=== PATIENT | male | born 1980 | race Caucasian/White ===

== ENCOUNTER 2018-09-06 13:36 | Emergency (ER) | payer BC, SELFPAY ==
[2018-09-06 13:36] VITALS: BP 162/101; PULSE 86; RESP 16; TEMP 36.8; O2SAT 97; BMI 44.7
[2018-09-06] MEDS: HYDROcodone Bitartrate/Apap 5/325 Tablet PO (13:48)
--- NOTE | 2018-09-06 13:52 | RAD_ITS ---
STUDY: X-RAY - LUMBAR SPINE REASON FOR EXAM: Male, 38 years old. Lower back pain. TECHNIQUE: 3 view(s) of the lumbar spine were obtained. COMPARISON: None FINDINGS: There is straightening of the normal lumbar lordosis. There is no substantial scoliosis. There is a normal alignment of the vertebrae. Mild degree of disc space narrowing and spondylosis at the L5-S1 level. The soft tissue structures are unremarkable. RAD/Lumbar Spine 2 or 3 Views IMPRESSION: Degenerative changes of the spine, as detailed above. Electronically Signed: Marcelino Victoria, at 14:35 EDT , Service support ,
--- NOTE | 2018-09-06 14:03 | ED.DCSUM_ITS ---
- ER Visit Summary Date of Service: 09/06/18 Chief Complaint: Left buttock pain and thigh pain History of Present Illness: The patient is a 38 M presents to the emergency department with left buttock pain and 5 pain. The patient states that he started a new job. 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 He states now, he is been moving a lot more boxes. He states that he began to have some sharp pain in his left buttock. He also describes a burning in his posterior thigh. He had no problems with bowel or bladder. He denies any fevers or chills. He denies any trauma. He denies any weakness. He states that he he stretches, and seems to feel better, but it has gotten worse over the past 2 days. Physical Examination: Afebrile, vitals unremarkable. Well-appearing male no acute distress. Head is normocephalic, atraumatic. Pupil's equal round reactive, extraocular muscles intact. Neck supple. Heart regular rate and rhythm. Lungs clear, chest nontender. Abdomen soft, nontender, nondistended. No pulsatile mass. Patient has paraspinal tenderness in the lumbar area, but no bony tenderness. There is also tenderness in the left piriformis area which does re-create some of the symptoms. Straight leg raise is negative salvatore aterally. 2+ symmetric lower extremity pulses. 2+ reflexes. No clonus. No weakness of dorsiflexion, plantar flexion, or extensor hallucis longus bilaterally. Test Results: [] Emergency Department Course and Treatment: The patient symptoms do seem consistent with a peripheral radiculopathy. He has tenderness over his piriformis muscle. I did obtain plain films of his lumbar spine. These are unremarkable for fracture. Patient did have pain control with [facility]. I am to place him a short burst of prednisone and analgesics. He will also continue stretching exercises. If the patient is safe for outpatient therapy. He is comfortable with this plan of care. Treatment Plan: [] Disposition: Discharge Impression: 1. Left lumbar radiculopathy This note was generated with Ninja Bl[employer] software. It may contain incorrect words, spelling, and punctuation that were not noted in review of the chart prior to signing ED Disposition - Plan for ED Patient: Instructions: ED Sciatica Prescriptions: Hydrocodone Bitart/Apap 5-325 [[place] 5MG-325MG] 1 tab PO Q6H PRN PRN 3 Days #10 tab PRN Reason: Pain Prednisone 10 mg PO UD #33 tab Referrals: NOT,DEFINED [NON-STAFF] -
[2018-09-06 15:18] VITALS: BP 194/119; PULSE 79; RESP 16; O2SAT 98
== END 2018-09-06 15:27 | disposition home or self-care (01) ==
PROVIDERS: Emergency Provider Emergency Medicine
DX: M54.16 Radiculopathy, lumbar region (principal); Z87.891 Personal history of nicotine dependence
CPT/HCPCS: 72100; 99283

== ENCOUNTER 2019-12-30 11:01 | Emergency (ER) | payer BC, SELFPAY ==
[2019-12-30 11:02] VITALS: BP 159/122; PULSE 95; RESP 18; TEMP 36.2; O2SAT 94; BMI 44.1
--- NOTE | 2019-12-30 11:42 | CT_ITS ---
STUDY: CT ABDOMEN AND PELVIS WITHOUT CONTRAST REASON FOR EXAM: Male, 39 years old. RT FLANK PAIN/URINARY URGENCY RADIATION DOSAGE (If Supplied By Facility): CTDIvol = ( 30.92 ) mGy, DLP = ( 1537.01 ) mGycm TECHNIQUE: Transaxial images were obtained from the dome of the diaphragm to the symphysis pubis without oral contrast, and without intravenous contrast. Sagittal and coronal images were reconstructed. Individualized dose optimization techniques were used for this CT. COMPARISON: None. FINDINGS: The visualized lung bases are unremarkable. The visualized portions of the heart are within normal limits. Pronounced diffuse fatty infiltration of the liver with minimal areas of fatty sparing in the right hepatic lobe. Normal gallbladder and extrahepatic biliary system. Normal spleen. Normal pancreas. Normal bilateral adrenal glands. Normal right kidney. Normal left kidney. Normal visualized stomach. Normal small intestine. Normal colon. The appendix is visualized and appears normal. Normal abdominal aorta. Normal inferior vena cava. Normal retroperitoneum. Normal urinary bladder. Normal size of prostate gland. Normal abdominal wall. L5-S1 disc space height narrowing with degenerative vacuum phenomenon. No acute osseous abnormality. CT/Abdomen/Pelvis without Cont IMPRESSION: 1. Pronounced hepatic steatosis with minimal areas of focal fatty sparing in the right hepatic lobe. 2. No CT evidence of mass or acute abnormality in the abdomen and pelvis. 3. No CT evidence of stones in the kidneys, ureters and urinary bladder. 4. Normal CT of the appendix. 5. L5-S1 degenerative disc space height narrowing with degenerative vacuum phenomenon. Electronically Signed: Ishan Crane MD at 13:07 EDT , Service support ,
[2019-12-30] MEDS: Ondansetron 4 MG/2 ML Vial IV (12:02)
[2019-12-30] MEDS: 0.9% Normal Saline 1,000 ML 250 ML IV (12:02)
[2019-12-30] MEDS: Morphine 4 MG/ML Syringe IV (12:02)
[2019-12-30] MEDS: Ketorolac 15 MG/ML Vial IV (12:08)
[2019-12-30 12:25] LABS: Bacteria 0 SEEN /hpf (None Seen); Mucous, Urine 0 SEEN /hpf (<or=2+); Red Blood Cells-Urine 0 SEEN /hpf (0-5); Squamous Epithelial Cells - UA 0 SEEN /hpf (0-5); White Blood Cells 0 SEEN /hpf (0-5)
[2019-12-30 12:27] LABS: Color, Urine Yellow (Yellow); Glucose, Dipstick Normal (Normal); Ketone-Dipstick Negative (Negative); Leukocyte Esterase-Dipstick Negative /ul (Negative); Nitrite-Dipstick Negative (Negative); Occult Blood-Urine Negative /ul (Negative); Protein-Dipstick Negative (Negative); Urine Bilirubin Dipstick Negative (Negative); Urine Clarity Clear (Clear); Urine Urobilinogen Normal (Normal)
--- NOTE | 2019-12-30 13:18 | ED.DCSUM_ITS ---
- ER Visit Summary Date of Service: 12/30/19 Chief Complaint: Right flank pain History of Present Illness: The patient is a 39 M with no primary care physician. He reports he has right flank pain that began today abruptly. It is a sharp pain is 10 of 10 at worst 9 out of 10 currently. Is worsened by walking or movement. Is not taken anything for pain. Denies any associated nausea, vomiting, or diarrhea. His last bowel was today. Normal hematochezia. No dysuria or frequency. States is similar to when he had kidney stones in the past. Physical Examination: Vitals: Stable. Afebrile. General: Well-nourished and well-developed. Head: Normocephalic atraumatic. Neck: Supple, no lymphadenopathy. No JVD. Nontender. Cardiovascular: Regular rate and rhythm. No murmurs. Respiratory: No respiratory distress. Clear to auscultation bilaterally. Abdominal: Soft, nontender, nondistended, normal bowel sounds. No guarding, rebound, or peritoneal signs. Back: Mild right CVA tenderness. Extremities: Nontender, no edema. Skin: Normal color, no rash. Neurologic: Alert and oriented ?3. Cranial nerves II through XII are intact. Normal strength and sensation. Psych: Normal affect. Test Results: Urinalysis is negative. CT shows no stone. Does show chronic changes. Please see the report. Emergency Department Course and Treatment: An OARRS report was obtained which was negative. The patient is given morphine, Toradol, and Zofran IV. He is resting more comfortably. Treatment Plan: Patient will be discharged with naproxen and 10 [place]. [facility] if not improving. Return to the emergency department for any worsening symptoms. Disposition: To home in improved and stable condition. Impression: 1. Right flank pain, acute. This note was generated with [employer] dictation software. It may contain incorrect words, spelling, and punctuation that were not noted in review of the chart prior to signing ED Disposition - Plan for ED Patient: Instructions: ED Flank Pain Uncertain Cause Prescriptions: Naproxen [Naprosyn] 500 mg PO BID #14 tablet Hydrocodone Bitart/Apap 5-325 [[place] 5MG-325MG] 1 tablet PO Q4H PRN PRN 2 Days #10 tablet PRN Reason: Pain Referrals: [facility] Blandon [NON-STAFF] - 1 Week if not improving
[2019-12-30 13:21] VITALS: BP 153/71; PULSE 79; RESP 16
== END 2019-12-30 13:35 | disposition home or self-care (01) ==
LOC: ED 12:43
PROVIDERS: Emergency Provider Emergency Medicine
DX: R10.9 Unspecified abdominal pain (principal); F17.290 Nicotine dependence, other tobacco product, uncomplicated; Z87.442 Personal history of urinary calculi
CPT/HCPCS: 74176; 81001; 96361; 96374; 96375; 99283; J7030; A4216; J2405

== ENCOUNTER 2021-08-10 12:10 | Emergency (ER) | payer BC, SELFPAY ==
[2021-08-10 12:11] VITALS: BP 168/118; PULSE 87; RESP 17; TEMP 36.5; O2SAT 94; BMI 42.3
--- NOTE | 2021-08-10 12:27 | EDS_ITS ---
HPI History of Present Illness Chief Complaint: Edema Informant: patient Onset/Context/Timing Onset: Days Context: Gradual Onset Location: L occipital Worsened by: nothing, maybe after shaving head Relieved by: nothing Associated Symptoms Associated Symptoms: swelling behind L ear, sinus congestion Narrative Narrative: L occipital swelling, now improved. With a small infected hair to the area after shaving head. Had some pain and swelling behind the left ear too. Oc casional sinus symptoms with decreased hearing in the R ear. PFSH PFSH Home Medications naproxen 500 mg PO BID #14 tab 12/30/19 [Rx Last Taken Unknown] cephalexin 500 mg PO Q6 #40 capsule 08/10/21 [Rx Last Taken Unknown] sulfamethoxazole-trimethoprim [Bactrim DS] 1 tab PO Q12H #20 tab 08/10/21 [Rx Last Taken Unknown] Allergy/AdvReac Type Severity Reaction Status Date / Time No Known Allergies Allergy Verified 08/10/21 12:11 Social History Smoking Status: Current some day smoker ROS ROS ED Constitutional Constitutional ED: Reports systems reviewed and no addt'l complaints, except as documented Eyes Eyes: Reports systems reviewed and no addt'l complaints, except as documented ENT ENT ED: Reports systems reviewed and no addt'l complaints, except as documented Musculoskeletal Musculoskeletal: Reports systems reviewed and no addt'l complaints, except as documented Integumentary Reports as per HPI Neurologic Neurologic: Reports systems reviewed and no addt'l complaints, except as documented Psychiatric Psychiatric: Reports systems reviewed and no addt'l complaints, except as documented Endocrine Endocrinology: Reports systems reviewed and no addt'l complaints, except as documented Hematologic/Lymphatic Hematologic/Lymphatic: Reports systems reviewed and no addt'l complaints, except as documented Allergic/Immunologic Allergic/Immunologic ED: Reports systems reviewed and no addt'l complaints, except as documented EXAM Physical Exam Const Vital Signs: 08/10/21 12:11 Temperature 97.7 F L Temperature Source Temporal Pulse Rate 87 Respiratory Rate 17 Blood Pressure 168/118 H Blood Pressure Mean 134 Pulse Ox 94 Oxygen Delivery Method Room Air Positive well nourished and well developed General Appearance ED: active and well developed HEENT Reports normocephalic HEENT Narrative: Left occipital folliculitis noted with surrounding erythema about the size of a quarter. No other erythema. No fluctuance. No pus or bleeding. Eyes PERRL and EOMs intact bilaterally Neck full ROM Neck Narrative: Tender to palpation over the left posterior auricular region. No skin changes there. No masses. Lymph Lymphatic: no lymphadenopathy noted Resp normal respiratory effort Effort and Inspection: Negative for abnormal respiratory pattern Cardio regular rate Back/Spine normal to inspection Extremity normal to inspection Neuro Sensorium / Orientation: awake and alert Meningeal Signs: no meningeal signs Cranial Nerves: CN normal except as noted Psych mental status grossly normal MDM MDM MDM Narrative Medical decision making narrative: Patient has a folliculitis and will be treated with oral antibiotics. I suspect the tenderness behind his ear was a reactive lymphadenopathy. Otherwise his HEENT exam is unremarkable. Normal cranial nerves. No fever or systemic symptoms. Patient will be discharged home with symptomatic care. Warm compresses. Return for any new or worsening issues. Impression #1 scalp folliculitis Disposition discharged home in stable condition Discharge Plan Triage Chief Complaint: Edema ED Provider: Antonio Stanley Dx/Rx/DC Orders Instructions: Cellulitis Prescriptions: New sulfamethoxazole-trimethoprim [Bactrim DS] 800-160 mg tablet 1 tab PO Q12H Qty: 20 RF: 0 cephalexin 500 mg capsule 500 mg PO Q6 Qty: 40 RF: 0 No Action naproxen 500 MG tablet 500 mg PO BID Qty: 14 RF: 0 Primary Care Provider: Care Physician,No Primary Referrals: Randee Pineda MD [STAFF PHYSICIAN] - Disposition Disposition: Home, Self Care
[2021-08-10] MEDS: Cephalexin 250 MG Capsule 500 MG PO (12:45)
[2021-08-10] MEDS: Smz/Tmp Ds Tablet 1 TABLET PO (12:45)
[2021-08-10 12:46] VITALS: BP 169/107; PULSE 84; RESP 17; O2SAT 95
== END 2021-08-10 12:51 | disposition home or self-care (01) ==
LOC: ED 12:33
PROVIDERS: Emergency Provider Emergency Medicine; Visit Provider Emergency Medicine
DX: L66.2 Folliculitis decalvans (principal); F17.200 Nicotine dependence, unspecified, uncomplicated
CPT/HCPCS: 99283

== ENCOUNTER → 2021-11-12 | Outpatient (CLI) | payer BC, SELFPAY ==
[2021-11-12 21:22] LABS: Absolute Lymphocyte Count 3.09 X10^3/uL (0.83-4.51); Absolute Neutrophil Count 5.8 X10^3/uL (2.0-7.7); Basophil# 0.07 X10^3/uL; Basophil% 0.7 % (0-1); Eosinophil# 0.26 X10^3/uL; Eosinophils% 2.5 % (0-5); Hematocrit 49.3 % (40-54); Hemoglobin 16.3 g/dL (13.0-16.5); Lymphocyte # 3.09 X10^3/ul (0.83-4.51); Lymphocyte % 30.3 % (19-41); Mean Corp Hgb Conc 33.1 g/dL (32-36); Mean Corpuscular Hgb 31.3 pg (27.0-32.0); Mean Corpuscular Volume 94.6 fL (80-94); Mean Platelet Vol. 9.8 fl (6.2-12.0); Monocyte# 0.99 X10^3/uL; Monocyte% 9.7 % (0-10); NRBC Flagged by Analyzer 0 % (0-5); Neutrophil # 5.76 X10^3/uL (2.7-7.7); Neutrophil % 56.4 % (47-70); Platelet Count 270 K/mm3 (150-450); RBC Distribution Width CV 12.4 % (11.6-14.6); Red Blood Count 5.21 M/mm3 (4.6-6.2); White Blood Count 10.2 K/mm3 (4.4-11.0)
[2021-11-12 21:46] LABS: AST(SGOT) 20 U/L (15-37); Alanine Aminotransfer ALT/SGPT 44 U/L (16-61); Albumin, Serum 3.9 g/dL (3.2-5.0); Alkaline Phosphatase 79 U/L (45-117); Anion Gap 4 (5-15); BUN 18 mg/dL (7-18); BUN/Creat Ratio 14.5 RATIO (10-20); Chloride 104 mmol/L (98-107); Cholesterol 161 mg/dL (200); Creatinine, Serum 1.24 mg/dL (0.70-1.30); EST Glomerular Filtration Rate 68 mL/min (>60); Est Glom Filt Rate - Afr Amer 83 mL/min (>60); Globulin 3.9 g/dL (2.2-4.2); Glucose 113 mg/dL (74-106); High Density Lipoprotein 32 mg/dL; PSA,Total - Annual Screen 0.52 ng/mL (0.00-4.00); Potassium 4.2 mmol/L (3.5-5.1); Protein, Total 7.8 g/dL (6.4-8.2); Sodium Level 140 mmol/L (136-145); Thyroid Stim Hormone (TSH) 1.64 uIU/mL (0.358-3.74); Triglycerides 170 mg/dL; Very Low Density Lipoprotein 34 mg/dL (5-40)
== END | disposition home or self-care (01) ==
PROVIDERS: Visit Provider Nurse Practitioner
DX: I10 Essential (primary) hypertension (principal); R35.0 Frequency of micturition
CPT/HCPCS: 80053; 80061; 84153; 84443; 85025; 86141; G0103

== ENCOUNTER → 2022-01-24 | Outpatient (CLI) | payer BC, SELFPAY ==
--- NOTE | 2022-01-24 14:42 | ECHOCS_ITS ---
Reason For Study: HYPERTENSION Procedure This was a 2D Doppler, Color Flow transthoracic echocardiogram. The study was technically difficult. Exam performed in department. Left Ventricle Normal size and thickness. The left ventricular ejection fraction is 55 %. Normal diastololic function. Right Ventricle Normal right ventricle. Atria The left and right atria are normal. Mitral Valve The mitral valve is structurally normal. No prolapse or stenosis seen. Tricuspid Valve Normal tricuspid valve. Aortic Valve Normal aortic valve. Pulmonic Valve Trivial eccentric pulmonic valve insufficiency. Great Vessels Normal sized aortic root. Pericardium/Pleural No pericardial effusion. Medication 22 gauge I.V. with prn adaptor inserted into right arm. Diluted definity 2ml given slow IV push to enhance endocardial definition. MMode/2D Measurements & Calculations LVIDd: 5.6 cm IVSd: 0.94 cm Ao root diam: 3.5 cm LVIDs: 3.9 cm LVPWd: 0.93 cm RVDd: 4.0 cm FS: 29.6 % LAV(MOD-bp): 56.5 ml LVAd ap4: 47.1 cm2 SV(MOD-sp4): 96.7 ml LAV(MOD-bp) Indexed: 23.2 ml/m2 LVLd ap4: 10.5 cm LAV(MOD-sp2): 51.9 ml EDV(MOD-sp4): 175.5 ml LAV(MOD-sp4): 57.0 ml EDV(sp4-el): 179.7 ml LVAs ap4: 27.6 cm2 LVLs ap4: 8.0 cm ESV(MOD-sp4): 78.8 ml ESV(sp4-el): 80.5 ml EF(MOD-sp4): 55.1 % EF(sp4-el): 55.2 % SV(sp4-el): 99.2 ml LA A4 area: 19.8 cm2 LA dimension(2D): 3.8 cm RA A4 area: 19.0 cm2 Time Measurements MV dec time: 0.20 sec Doppler Measurements & Calculations MV E max jason: 82.7 cm/sec Lat Peak E' Jason: 14.8 cm/sec Med Peak E' Jason: 12.6 cm/sec MV A max jason: 51.2 cm/sec E/E' lat: 5.6 E/E' med: 6.6 MV E/A: 1.6 Ao V2 max: 134.1 cm/sec LV V1 max: 125.0 cm/sec PA V2 max: 106.7 cm/sec Ao max P.2 mmHg LV V1 max P.2 mmHg TR max jason: 235.8 cm/sec TR max P.2 mmHg ECHO/Echo Complete W/ Contrast Interpretation Summary The left ventricular ejection fraction is 55 %. Ordering Physician: Kimberly Morales Referring Physician: Kimberly Morales Performed By: Sherly Roberts RDCS
[2022-01-24 16:13] LABS: Anion Gap 3 (5-15); BUN 23 mg/dL (7-18); BUN/Creat Ratio 25.7 RATIO (10-20); Calcium,Total 9.5 mg/dL (8.5-10.1); Chloride 101 mmol/L (98-107); Creatinine, Serum 0.89 mg/dL (0.70-1.30); EST Glomerular Filtration Rate 99 mL/min (>60); Est Glom Filt Rate - Afr Amer 120 mL/min (>60); Glucose 89 mg/dL (74-106); Potassium 4.4 mmol/L (3.5-5.1); Sodium Level 138 mmol/L (136-145)
== END | disposition home or self-care (01) ==
PROVIDERS: Referring Provider Internal Medicine Cardiovascular Disease; Visit Provider Internal Medicine Cardiovascular Disease
DX: I10 Essential (primary) hypertension (principal)
CPT/HCPCS: 36415; 80048; 93306; Q9957; A4216; C8929

== ENCOUNTER → 2022-02-03 | Outpatient (CLI) | payer BC, SELFPAY ==
[2022-02-03 15:43] LABS: Anion Gap 6 (5-15); BUN 21 mg/dL (7-18); BUN/Creat Ratio 22.2 RATIO (10-20); Calcium,Total 9.6 mg/dL (8.5-10.1); Chloride 105 mmol/L (98-107); Creatinine, Serum 0.95 mg/dL (0.70-1.30); EST Glomerular Filtration Rate 93 mL/min (>60); Est Glom Filt Rate - Afr Amer 113 mL/min (>60); Glucose 116 mg/dL (74-106); Potassium 3.7 mmol/L (3.5-5.1); Sodium Level 141 mmol/L (136-145)
== END | disposition home or self-care (01) ==
LOC: LAB 14:57
PROVIDERS: Visit Provider Internal Medicine Cardiovascular Disease
DX: R79.9 Abnormal finding of blood chemistry, unspecified (principal)
CPT/HCPCS: 36415; 80048

== ENCOUNTER 2023-04-14 20:48 | Emergency (ER) | payer BC, SELFPAY ==
[2023-04-14 20:49] VITALS: BP 159/112; PULSE 78; RESP 16; TEMP 35.9; O2SAT 99; BMI 39.0
[2023-04-14 21:18] LABS: Absolute Lymphocyte Count 3.05 X10^3/uL (0.83-4.51); Absolute Neutrophil Count 6.4 X10^3/uL (2.0-7.7); Basophil# 0.06 X10^3/uL; Basophil% 0.6 % (0-1); Eosinophil# 0.23 X10^3/uL; Eosinophils% 2.2 % (0-5); Hematocrit 45.7 % (40-54); Hemoglobin 15.2 g/dL (13.0-16.5); Lymphocyte # 3.05 X10^3/ul (0.83-4.51); Lymphocyte % 28.8 % (19-41); Mean Corp Hgb Conc 33.3 g/dL (32-36); Mean Corpuscular Hgb 30.8 pg (27.0-32.0); Mean Corpuscular Volume 92.5 fL (80-94); Mean Platelet Vol. 9.2 fl (6.2-12.0); Monocyte# 0.85 X10^3/uL; NRBC Flagged by Analyzer 0 % (0-5); Neutrophil # 6.36 X10^3/uL (2.7-7.7); Neutrophil % 59.9 % (47-70); Platelet Count 243 K/mm3 (150-450); Red Blood Count 4.94 M/mm3 (4.6-6.2); White Blood Count 10.6 K/mm3 (4.4-11.0)
--- NOTE | 2023-04-14 21:20 | RAD_ITS ---
STUDY: X-RAY CHEST REASON FOR EXAM: Male, 42 years old. chest pain TECHNIQUE: Single AP portable view of the chest. COMPARISON: None. FINDINGS: The lungs are clear and expanded. There is no demonstrated pleural abnormality. Normal size heart. Normal mediastinum and chavo. Normal visualized pulmonary arteries. Normal visualized aortic arch and descending thoracic aorta. Normal visualized thoracic spine. Normal visualized ribs, clavicles, and shoulders. There is no demonstrated abnormality of the visualized soft tissue structures of the upper abdomen. RAD/Chest 1 View (Portable) IMPRESSION: Normal x-ray examination of the chest. Electronically Signed: Andres Sawant MD at 21:47 EST ,
--- OUTSIDE RECORDS SUMMARY | 2023-04-14 21:21 | XMS RPT_ITS | CCD ---
Author Name Unknown Address [address] [place] [address] Organization [facility] Results Test Name Value Interpretation Reference Range Facil ity Encounters Encounter Date Encounter Type Care Provider Facility Start: 10-08-2016 End: 10-09-2016 Ambulatory [facility] Summary Purpose Family History No Family History Records Found Advance Directives No Advanced Directives Records Found Additional Source Comments (unrecognized sect ion and content) No Status Records Found INFORMATION SOURCE (unrecogn ized section and content) FOR RECORDS PERTAINING TO PATIENTS WHO ARE OR HAVE BEEN ENROLLED IN A CHEMICAL DEPENDENCY/SUBSTANCEABUSE PROGRAM, SOME INFORMATION MAY BE OMITTED. This clinical summary was aggregated from multiple sources. Caution should be exercised in using it in the provision of clinical care. This summary normalizes information from multiple sources, and as a consequence, information in this document may materially change the coding, format and clinical context of patient data. In addition, data may be omitted in some cases. CLINICAL DECISIONS SHOULD BE BASED ON THE PRIMARY CLINICAL RECORDS. [employer] provides no warranty or guarantee of the accuracy or completeness of information in this document.
[2023-04-14] MEDS: Aspirin 81 MG TAB.CHEW 324 MG PO (21:31)
[2023-04-14] MEDS: 0.9% Normal Saline (1000mL) 1,000 ML 150 ML IV (21:34)
--- NOTE | 2023-04-14 21:34 | EDS_ITS ---
HPI History of Present Illness Chief Complaint: Chest Pain Narrative Narrative: 42-year-old male past medical history of hypertension, smoker, presents with chest pain and left arm pain that has had. He states this morning at around 7:00 he did not feel well. He felt shaky. He went to the nurse who noticed that his blood pressure was elevated. They also state that his heart rate was high, above 100. He sat down and started to feel improved. He went about his day and went home. While he was at home tonight, he started feeling chest pain again. He asked his mother who had a maker what her chest pain felt like, and she told him that it felt more like indigestion and left arm pain. He became more concerned, stating that at around 7:00 he started feeling pain and shakiness again and is concerned about coronary artery disease. [facility] Medical History Essential (primary) hypertension Smoking addiction Thoracic myofascial strain Home Medications hydrochlorothiazide 25 mg tablet 25 mg PO DAILY #90 tabs 09/29/22 [Rx Last Taken Unknown] losartan 100 mg tablet 100 mg PO QDAY #90 tabs 01/02/23 [Rx Last Taken Unknown] metoprolol succinate 50 mg tablet,extended release 24 hr 50 mg PO QDAY #90 tabs 01/02/23 [Rx Last Taken Unknown] Allergy/AdvReac Type Severity Reaction Status Date / Time No Known Allergies Allergy Verified 04/14/23 20:49 Family History Father , age 49 METS TO BONE THEN BRAIN Prostate cancer Mother Myocardial infarction Had her maker 100% blockage open heart surgery Hypertension Diabetes Heart disease Grandmother Heart disease Grandfather Colon cancer Surgical History H/O adenoidectomy Hx of tonsillectomy Social History Smoking Status: Current some day smoker tobacco type: cigarettes Tobacco: How many years used: 23 quit status: considering quitting alcohol intake: current alcohol intake frequency: holidays/special occasions only substance use type: marijuana caffeine: Yes Type: coffee Number of servings: 1 ROS ROS ED ROS Narrative Constitutional: No fever, no chills. [place] sweaty at home. HEENT: No sore throat. No neck pain. No loss of vision. No rhinorrhea. Cardiovascular: Positive chest pain. No palpitations. No pedal edema. Respiratory: No cough, positive shortness of breath. Abdominal: No abdominal pain. No nausea. No vomiting. Genitourinary: No dysuria. No hematuria. Musculoskeletal: No myalgias. Left shoulder pain. Neurologic: No headaches. No dizziness. No lightheadedness. Skin: No rash. No change in color. Psychiatric: No depression. No anxiety. EXAM Physical Exam Narrative Exam Narrative: Afebrile. Vital signs noted. HEENT: Normocephalic. Atraumatic. PERRL, EOMI. Neck soft and supple. No point tenderness or step off. Cardiovascular: Regular rate and rhythm. No murmurs, rubs, or gallops appreciated. Respiratory: No tachypnea. Lungs clear to auscultation bilaterally. Gastrointestinal: Abdomen soft, nontender, with normoactive bowel sounds. No rebound or guarding. Neurological: Awake. Alert. Nonfocal, nonlateralizing. Skin: No rash. Normal color. No pallor. Musculoskeletal: No pedal edema. Full range of motion extremities. Const Vital Signs: 04/14/23 20:49 04/14/23 21:01 04/14/23 22:00 Temperature 96.7 F L Temperature Source Temporal Pulse Rate 78 Respiratory Rate 16 Respiratory Effort Normal Blood Pressure 159/112 H Blood Pressure Mean 127 Pulse Ox 99 98 Oxygen Delivery Method Room Air Room Air 04/14/23 22:25 04/14/23 23:51 Temperature Temperature Source Pulse Rate 72 74 Respiratory Rate 23 H 22 H Respiratory Effort Blood Pressure 133/77 H Blood Pressure Mean 95 Pulse Ox 97 97 Oxygen Delivery Method Room Air Heart Score History: Slightly/Non-Suspicious ECG: Normal Age: </= 45 years Risk Factors: >/= 3 Risk Factors or History of CAD Troponin: </= Normal Limit Score: 2 MDM MDM MDM Narrative Medical decision making narrative: In the differential diagnosis is ACS versus pulmonary embolism versus aortic dissection versus pneumothorax. I have low suspicion for pulmonary embolism because he is not tachycardic and his pulse ox is 99% on room air and the history and physical is not suggestive of that. Additionally, I have low suspicion for aortic dissection because he has equal pulses, he does not have tearing back pain. EKG was obtained and interpreted by myself independently as normal sinus rhythm at 77 bpm without ectopy or acute ST changes, no STEMI or no cardiac ischemia. Chest pain workup was pursued. I will also add a D-dimer to screen him for pulmonary embolism. Chest x-ray in 1 view was obtained and interpreted by myself as no evidence of pneumothorax or pneumonia. No widened mediastinum. I reviewed the radiology report which confirms my independent interpretation. I reviewed his laboratory work and he has normal white count of 10.6, hemoglobin normal at 15.2, hematocrit 45.7, platelet count normal at 243. Review available electrolyte panel shows potassium slightly low at 3.4 which was replaced orally with 40 mill equivalents, BUN slightly elevated 28 with creatinine normal at 1.01, glucose appropriately elevated at 111 with anion gap low at 4. Calcium is normal at 9.7, initial high-sensitivity troponin is 5. D-dimer is negative at less than 0.27. I have low suspicion for pulmonary embolism or aortic dissection. His blood pressure is now appropriate at 133/77. He is not tachycardic. I reviewed his prior outpatient record and he has been seen by cardiology who is managing his blood pressure. As well as a second troponin is negative, I feel he would be able to be discharged safely home. He was told he may require an outpatient stress test. He is to return with increasing chest pain, continued labile blood pressure, new or worsening symptoms. He will follow-up with his soil fertility extension specialist regarding his elevated blood pressure readings from today. He will continue his current medications. His second troponin is normal at 4. At this point in time, I feel he can be discharged safely home with follow-up. Smoking cessation was discussed. Return instructions to the emergency department were reviewed. Disposition is discharged home in stable condition. History & Record Review Discussion w/independent historian: Patient Additional record(s) reviewed:: Prior outpatient record and Prior ED visit Lab Data Attestation: I reviewed the patient's lab results. Labs: Laboratory Results - last 24 hr 04/14/23 04/14/23 04/14/23 20:58 21:15 23:26 WBC 10.6 RBC 4.94 Hgb 15.2 Hct 45.7 MCV 92.5 MCH 30.8 MCHC 33.3 RDW Std Deviation 41.0 RDW Coeff of Karl 12.0 Plt Count 243 MPV 9.2 Immature Gran % (Auto) 0.500 Neut % (Auto) 59.9 Lymph % (Auto) 28.8 Davis % (Auto) 8.0 Eos % (Auto) 2.2 Baso % (Auto) 0.6 Absolute Neuts (auto) 6.4 Absolute Lymphs (auto) 3.05 Nucleated RBC % 0 D-Dimer Quant (PE/DVT) < 0.27 L Sodium 138 Potassium 3.4 L Chloride 105 Carbon Dioxide 29.0 Anion Gap 4 L BUN 28 H Creatinine 1.01 Estim Creat Clear Calc 129.30 Est GFR (MDRD) Af Amer 104 Est GFR (MDRD) Non-Af 86 BUN/Creatinine Ratio 27.7 H Glucose 111 H Calcium 9.7 Troponin I High Sens 5 4 Radiography Diagnostic Testing: Clinical Impression(s) from Imaging Studies Chest X-Ray 04/14/23 21:20 IMPRESSION: Normal x-ray examination of the chest. Electronically Signed: Andres Sawant MD at 21:47 EST , Discharge Plan Triage Chief Complaint: Chest Pain ED Provider: Ishan Rai Dx/Rx/DC Orders Clinical Impression: Essential (primary) hypertension, Chest pain Instructions: ED Chest Pain, Uncertain Cause, ED High Blood Pressure Hypertension Prescriptions: No Action hydrochlorothiazide 25 mg tablet 25 mg PO DAILY Qty: 90 3RF losartan 100 mg tablet 100 mg PO QDAY Qty: 90 3RF metoprolol succinate 50 mg tablet extended release 24 hr 50 mg PO QDAY Qty: 90 3RF Primary Care Provider: Care Physician,No Primary Referrals: Kimberly Morales MD [Med Staff - Active Staff] - 3-5 Days Care Physician,No Primary [Primary Care Provider] - Activity Restrictions/Additional Instructions: Follow-up with your primary care physician in the next few days. Return with in creased chest pain, new or worsening symptoms. Keep an eye on your blood pressure. If it remains elevated, you may need to increase your medications. Discussed this with your soil fertility extension specialist. You may also need an outpatient stress test. Disposition Disposition: Home, Self Care
[2023-04-14 21:36] LABS: Anion Gap 4 (5-15); BUN 28 mg/dL (7-18); BUN/Creat Ratio 27.7 RATIO (10-20); Calcium,Total 9.7 mg/dL (8.5-10.1); Chloride 105 mmol/L (98-107); Creatinine, Serum 1.01 mg/dL (0.70-1.30); EST Glomerular Filtration Rate 86 mL/min (>60); Est Glom Filt Rate - Afr Amer 104 mL/min (>60); Glucose 111 mg/dL (74-106); Potassium 3.4 mmol/L (3.5-5.1); Sodium Level 138 mmol/L (136-145); Troponin-I HS (w/2H Reflex) 5 pg/mL (3.0-78.0)
[2023-04-14 22:00] VITALS: O2SAT 98
[2023-04-14 22:23] LABS: D-Dimer Quantitative (DVT/PE) < 0.27 FEU/ug/m (0.27-0.49)
[2023-04-14 22:25] VITALS: BP 133/77; PULSE 72; RESP 23; O2SAT 97
[2023-04-14] MEDS: Potassium Chloride Oral Tablet 20 MEQ 40 MEQ PO (22:27)
[2023-04-14 23:15] LABS: Reflex Troponin-HS? (from REC) Y
[2023-04-14 23:49] LABS: Troponin-I HS 4 pg/mL (3.0-78.0)
[2023-04-14 23:51] VITALS: PULSE 74; RESP 22; O2SAT 97
== END 2023-04-14 23:56 | disposition home or self-care (01) ==
PROVIDERS: Emergency Provider Emergency Medicine; Visit Provider Emergency Medicine
DX: R07.9 Chest pain, unspecified (principal); F17.210 Nicotine dependence, cigarettes, uncomplicated; I10 Essential (primary) hypertension; F12.90 Cannabis use, unspecified, uncomplicated
CPT/HCPCS: 71045; 80048; 84484; 85025; 85379; 93005; 96360; 96361; 99285; J7030; A4216

== ENCOUNTER → 2023-05-21 | Outpatient (CLI) | payer BC, SELFPAY ==
--- OUTSIDE RECORDS SUMMARY | 2023-05-21 07:04 | XMS RPT_ITS | CCD ---
Author Name Unknown Address [address] [place] [address] Organization [facility] Results Test Name Value Interpretation Reference Range Facil ity Encounters Encounter Date Encounter Type Care Provider Facility Start: 10-08-2016 End: 10-09-2016 Ambulatory [facility] Summary Purpose Family History No Family [...] BE BASED ON THE PRIMARY CLINICAL RECORDS. [employer] provides no warranty or guarantee of the accuracy or completeness of information in this document.
--- NOTE | 2023-05-21 15:49 | STRESSREP ---
Stress Test Report Date: 05/21/2023 Procedure: Exercise tolerance test/imaging study Indications: Chest pain Consent: Per the patient Procedure: The patient exercised on a Mateus protocol for 8 minutes and 16 seconds achieving a peak heart rate of 160 bpm (92% predicted maximal heart rate) with a peak blood pressure 230/104 mmHg and a peak MET capacity of 10.1 METs. The baseline ECG demonstrated sinus rhythm. The peak exercise ECG demonstrated no ischemic changes. There were no cardiac dysrhythmias pretest, during exercise, or recovery. The functional capacity was considered average. There was no complaint of chest discomfort during exercise or recovery. The examination was discontinued secondary to target heart rate being achieved. The patient was injected with 14.8 mCi of technetium 99m Cardiolite and subsequently rest SPECT Cardiolite nuclear imaging was obtained in the horizontal long, vertical long, and short axis views. Post-exercise, the patient was injected with 45.0 mCi of technetium 99m Cardiolite and subsequently stress SPECT Cardiolite nuclear imaging was obtained in the horizontal long, vertical long, and short axis views. A gated Cardiolite study at peak stress was obtained. Rest and stress SPECT Cardiolite nuclear imaging status post realignment, normalization, and attenuation correction, demonstrates the appearance of relative uniform tracer uptake and myocardial perfusion appearing within normal limits. There is end systolic thickening and brightening. The gated Cardiolite study demonstrates myocardial thickening and inward wall motion. The reported LVEF is 58%. Impression: 1. Technically adequate (percent predicted maximal heart rate greater than 85%) exercise tolerance test 2. Peak exercise ECG with no ischemic changes 3. There were no cardiac dysrhythmias pretest, during exercise, or recovery 4. Rest and stress SPECT Cardiolite nuclear imaging demonstrate relative uniform tracer uptake and myocardial perfusion appearing within normal limits. 5. The gated Cardiolite study reports an LVEF of 58%. This note was generated with [employer] software. It may contain incorrect words, spelling, and punctuation that were not noted in checking the note before signing.
== END | disposition home or self-care (01) ==
PROVIDERS: Referring Provider Physician Assistant Medical; Visit Provider Physician Assistant Medical
DX: G47.33 Obstructive sleep apnea (adult) (pediatric) (principal); I49.8 Other specified cardiac arrhythmias; I10 Essential (primary) hypertension; R07.9 Chest pain, unspecified
CPT/HCPCS: 78452; 93017; 93225; 93226; A9500; A4216

== ENCOUNTER → 2023-05-26 | Outpatient (CLI) | payer BC, SELFPAY | END | disposition home or self-care (01) | PROVIDERS: Referring Provider Physician Assistant Medical; Visit Provider Physician Assistant Medical | DX: G47.33 Obstructive sleep apnea (adult) (pediatric) (principal); E66.9 Obesity, unspecified; I49.8 Other specified cardiac arrhythmias | CPT/HCPCS: 95806 ==

== ENCOUNTER 2023-07-28 10:33 | Emergency (ER) | payer BC, SELFPAY ==
[2023-07-28 10:33] VITALS: BP 154/96; PULSE 83; RESP 14; TEMP 36.1; O2SAT 97
--- NOTE | 2023-07-28 11:45 | ED.VIS.BACK ---
HPI History of Present Illness Chief Complaint: Back Narrative Narrative: 43-year-old male presenting with back pain and history of sciatica. He states his lower back is more on the left. Denies loss of bladder or bowel control. In the setting of anesthesia. Patient is ambulatory but states it liriano on the posterior aspect of his left thigh. Radiates from his gluteal area. He is also told by urgent care that he has degenerative disc disease. He states that his symptoms tend to come and go but this time it is lingered more. Denies any history of trauma. [facility] Medical History Essential (primary) hypertension Smoking addiction Thoracic myofascial strain Home Medications hydrochlorothiazide 25 mg tablet 25 mg PO DAILY #90 tabs 09/29/22 [Rx Last Taken Unknown] losartan 100 mg tablet 100 mg PO QDAY #90 tabs 01/02/23 [Rx Last Taken Unknown] metoprolol succinate 50 mg tablet,extended release 24 hr 50 mg PO QDAY #90 tabs 01/02/23 [Rx Last Taken Unknown] amlodipine 2.5 mg tablet (Norvasc) 2.5 mg PO DAILY #90 tabs 04/27/23 [Rx Last Taken Unknown] naproxen 500 mg tablet (Naprosyn) 500 mg PO BID PRN pain #20 tabs 07/28/23 [Rx Last Taken Unknown] tizanidine 4 mg tablet (Zanaflex) 4 mg PO Q8H PRN muscle spasticity #20 tabs 07/28/23 [Rx Last Taken Unknown] Allergy/AdvReac Type Severity Reaction Status Date / Time No Known Allergies Allergy Verified 07/28/23 10:34 Family History Father , age 49 METS TO BONE THEN BRAIN Prostate cancer Mother Myocardial infarction Had her maker 100% blockage open heart surgery Hypertension Diabetes Heart disease Grandmother Heart disease Grandfather Colon cancer Surgical History H/O adenoidectomy Hx of tonsillectomy Social History Smoking Status: Light Smoker (<10/day) Tobacco: How many years used: 23 quit status: considering quitting alcohol intake: current alcohol intake frequency: holidays/special occasions only substance use type: marijuana caffeine: Yes Type: coffee Number of servings: 1 ROS ROS ED Constitutional Constitutional ED: Denies chills, fever(s) or sweats Eyes Eyes: Denies blurry vision or change in vision ENT ENT ED: Denies ear pain or sore throat Cardiovascular Cardiovascular: Denies chest pain, palpitations or racing heartbeat Respiratory/Chest Respiratory/Chest: Denies cough, dyspnea or sputum Gastrointestinal Gastrointestinal: Denies abdominal pain, constipation, diarrhea, nausea or vomiting Genitourinary Genitourinary ED: Denies dysuria, hematuria or urinary frequency Musculoskeletal Musculoskeletal: Reports back pain and other Details: Left posterior thigh pain left gluteal pain ; Denies arthralgias, myalgias or neck pain Integumentary Denies abscess, Abrasions or rash Neurologic Neurologic: Denies headache(s), paresthesias or weakness Psychiatric Psychiatric: Denies anxiety, depression, suicidal ideation or suicidal thoughts Endocrine Endocrinology: Denies polydipsia or polyuria EXAM Physical Exam Const Vital Signs: 07/28/23 10:33 Temperature 97 F L Temperature Source Temporal Pulse Rate 83 Respiratory Rate 14 Blood Pressure 154/96 H Blood Pressure Mean 115 Pulse Ox 97 Oxygen Delivery Method Room Air Positive well nourished General Appearance ED: NAD HEENT Reports moist mucous membranes Eyes PERRL and EOMs intact bilaterally Resp normal respiratory effort Cardio regular rate and regular rhythm Back/Spine Back/Spine Narrative: No midline lumbar spinal deformity, step-off, tenderness. There is tenderness palpation in the left lumbar paraspinal musculature and down into the gluteal region. Extremity normal to inspection Extremity Narrative: Left hip nontender Neuro oriented x3 Sensorium / Orientation: alert MDM MDM MDM Narrative Medical decision making narrative: Patient presenting back pain and concern for sciatica. He states this what is really lingered is why he is here because he does have a PCP. Patient was given Norflex, Toradol. He states he has a history of degenerative disc disease so we will obtain a lumbar spine x-ray. X-ray of the lumbar spine on my interpretation shows no acute fracture or subluxation. There is chronic degenerative changes. Radiology interprets this and agrees. On reevaluation the patient is feeling better after Norflex and Toradol. I will send him home with muscle relaxers and Naprosyn. I recommended that he get established with a PCP and he states that he and his have been working since has been in the emergency room. They are to go through their insurance to get established. Impression: 1. Back pain 2. Sciatica Radiography Diagnostic Testing: Clinical Impression(s) from Imaging Studies Lumbar Spine X-Ray 07/28/23 12:15 IMPRESSION: Degenerative changes of the spine, as detailed above. Electronically Signed: Freddy Grossman MD at 13:23 EDT , Discharge Plan Triage Chief Complaint: Back ED Provider: To Thrasher Dx/Rx/DC Orders Instructions: ED Back Spasm, No Trauma, ED Sciatica Prescriptions: New naproxen [Naprosyn] 500 mg tablet 500 mg PO BID PRN (Reason: pain) Qty: 20 0RF tizanidine [Zanaflex] 4 mg tablet 4 mg PO Q8H PRN (Reason: muscle spasticity) Qty: 20 0RF No Action hydrochlorothiazide 25 mg tablet 25 mg PO DAILY Qty: 90 3RF amlodipine [Norvasc] 2.5 mg tablet 2.5 mg PO DAILY Qty: 90 3RF losartan 100 mg tablet 100 mg PO QDAY Qty: 90 3RF metoprolol succinate 50 mg tablet extended release 24 hr 50 mg PO QDAY Qty: 90 3RF Primary Care Provider: Care Physician,No Primary Referrals: Care Physician,No Primary [Primary Care Provider] - Disposition Disposition: Home, Self Care Discharge Date/Time: 07/28/23 14:44
[2023-07-28] MEDS: Ketorolac 15 MG/ML Vial IM (12:08)
[2023-07-28] MEDS: Orphenadrine 60 MG/2 ML Ampul IM (12:08)
--- NOTE | 2023-07-28 12:15 | RAD_ITS ---
STUDY: X-RAY - LUMBAR SPINE REASON FOR EXAM: Male, 43 years old. pain TECHNIQUE: 2 view(s) of the lumbar spine were obtained. COMPARISON: X-ray the lumbar spine dated September 06, 2018 FINDINGS: Normal lumbar lordosis. Mild levoscoliosis is present. There is a normal alignment of the vertebrae. There is multilevel endplate spondylosis of the lumbar vertebrae. There is mild multi-level degenerative disc disease with asymmetric multi-level disc space narrowing. There is no demonstrated fracture or compression deformity. The soft tissue structures are unremarkable. RAD/Lumbar Spine 2 or 3 Views IMPRESSION: Degenerative changes of the spine, as detailed above. Electronically Signed: Freddy Grossman MD at 13:23 EDT ,
== END 2023-07-28 14:44 | disposition home or self-care (01) ==
PROVIDERS: Emergency Provider Student in an Organized Health Care Education/Training Program; Visit Provider Student in an Organized Health Care Education/Training Program
DX: M54.30 Sciatica, unspecified side (principal); F17.200 Nicotine dependence, unspecified, uncomplicated; I10 Essential (primary) hypertension
CPT/HCPCS: 72100; 96372; 99282

== ENCOUNTER → 2023-10-23 | Outpatient (CLI) | payer BC, SELFPAY ==
[2023-10-23 10:36] LABS: Absolute Lymphocyte Count 2.39 X10^3/uL (0.83-4.51); Absolute Neutrophil Count 6.2 X10^3/uL (2.0-7.7); Basophil# 0.05 X10^3/uL; Basophil% 0.5 % (0-1); Eosinophil# 0.16 X10^3/uL; Eosinophils% 1.7 % (0-5); Hematocrit 45.1 % (40-54); Hemoglobin 14.9 g/dL (13.0-16.5); Lymphocyte # 2.39 X10^3/ul (0.83-4.51); Lymphocyte % 24.9 % (19-41); Mean Corpuscular Hgb 30.8 pg (27.0-32.0); Mean Corpuscular Volume 93.2 fL (80-94); Mean Platelet Vol. 9.5 fl (6.2-12.0); Monocyte# 0.72 X10^3/uL; Monocyte% 7.5 % (0-10); NRBC Flagged by Analyzer 0 % (0-5); Neutrophil % 64.8 % (47-70); Platelet Count 239 K/mm3 (150-450); RBC Distribution Width SD 41.2 fl (35.1-43.9); Red Blood Count 4.84 M/mm3 (4.6-6.2); White Blood Count 9.6 K/mm3 (4.4-11.0)
[2023-10-23 12:37] LABS: Vitamin D,25 Hydroxy 42.8 ng/mL
[2023-10-23 12:42] LABS: ALB/GLOB Ratio 1.2 RATIO (0.9-2.4); AST(SGOT) 18 U/L (15-37); Alanine Aminotransfer ALT/SGPT 23 U/L (16-61); Alkaline Phosphatase 51 U/L (45-117); Anion Gap 5 (5-15); BUN 24 mg/dL (7-18); BUN/Creat Ratio 27.2 RATIO (10-20); Calcium,Total 9.2 mg/dL (8.5-10.1); Chloride 103 mmol/L (98-107); Cholesterol 145 mg/dL (200); Creatinine, Serum 0.88 mg/dL (0.70-1.30); EST Glomerular Filtration Rate 100 mL/min (>60); Est Glom Filt Rate - Afr Amer 121 mL/min (>60); Globulin 3.4 g/dL (2.2-4.2); Glucose 100 mg/dL (74-106); High Density Lipoprotein 35 mg/dL; Protein, Total 7.4 g/dL (6.4-8.2); Sodium Level 136 mmol/L (136-145); Thyroid Stim Hormone (TSH) 1.04 uIU/mL (0.358-3.74); Triglycerides 117 mg/dL; Very Low Density Lipoprotein 23 mg/dL (5-40)
== END | disposition home or self-care (01) ==
LOC: MFPLAB 09:43
PROVIDERS: PCP Family Medicine; Visit Provider Family Medicine
DX: I10 Essential (primary) hypertension (principal); M51.36 Other intervertebral disc degeneration, lumbar region
CPT/HCPCS: 36415; 80053; 80061; 82306; 84443; 85025

== ENCOUNTER → 2024-03-17 | Outpatient (CLI) | payer SELFPAY ==
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
== END | disposition home or self-care (01) ==
PROVIDERS: PCP Family Medicine; Referring Provider Orthopaedic Surgery Sports Medicine; Visit Provider Orthopaedic Surgery Sports Medicine
DX: S46.911A Strain of unspecified muscle, fascia and tendon at shoulder and upper arm level, right arm, initial encounter (principal); S46.211A Strain of muscle, fascia and tendon of other parts of biceps, right arm, initial encounter; X58.XXXA Exposure to other specified factors, initial encounter
CPT/HCPCS: 73030

== ENCOUNTER → 2024-09-19 | Outpatient (CLI) | payer OTHER, SELFPAY ==
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
== END | disposition home or self-care (01) ==
LOC: MTRAD 17:03
PROVIDERS: PCP Family Medicine; Referring Provider Family Medicine; Visit Provider Family Medicine
DX: S69.91XA Unspecified injury of right wrist, hand and finger(s), initial encounter (principal)
CPT/HCPCS: 73130

== ENCOUNTER → 2024-09-27 | Outpatient (CLI) | payer OTHER, SELFPAY | END | disposition home or self-care (01) | LOC: PSN 06:44 | PROVIDERS: PCP Family Medicine; Referring Provider Nurse Practitioner Acute Care; Visit Provider Nurse Practitioner Acute Care | DX: R06.00 Dyspnea, unspecified (principal) | CPT/HCPCS: 94060; 94726; 94729 ==